=== PATIENT | female | born 1990 | race African-American/Black ===

== ENCOUNTER 2017-06-04 08:55 | Emergency (ER) | payer SELFPAY ==
[2017-06-04] MEDS ORDERED: ONDANSETRON 4 MG TAB.RAPDIS PO ONE (09:23)
--- NOTE | 2017-06-04 09:24 | ER Document Report ---
ED Medical Screen (RME) - General Chief Complaint: Abdominal Pain Stated Complaint: ABDOMINAL PAIN AND VOMITING Time Seen by Provider: 06/04/17 09:23 Notes: Patient with abdominal cramping since yesterday. It is bilateral lower quadrant and more on the right. She states she is a week late on her menstrual cycle. No diarrhea. No problems with urination. She has been nauseous but has not vomited. She denies any medical problems. She has had one abdominal surgery which was a . TRAVEL OUTSIDE OF THE [place] IN LAST 30 DAYS: No - Related Data Allergies/Adverse Reactions: aripiprazole [From [employer]] Allergy (Verified 06/04/17 08:58) Past Medical History - Social History Chew tobacco use (# tins/day): No Frequency of alcohol use: None Drug Abuse: None Renal/ Medical History: Denies: Hx Peritoneal Dialysis Psychiatric Medical History: Reports: Hx Bipolar Disorder Surgical Hx: Negative Physical Exam - Vital signs Vitals: Temp Pulse BP Pulse Ox 98.5 F 82 118/65 96 06/04/17 08:59 06/04/17 08:59 06/04/17 08:59 06/04/17 08:59 Course - Vital Signs Vital signs: Temp Pulse Resp BP Pulse Ox 98.5 F 82 118/65 96 06/04/17 08:59 06/04/17 08:59 06/04/17 08:59 06/04/17 08:59
[2017-06-04 09:57] LABS: ABSOLUTE BASOPHILS # (AUTO) 0.1 10^3/uL (0.0-0.2); ABSOLUTE EOSINOPHILS # (AUTO) 0.1 10^3/uL (0.0-0.6); ABSOLUTE LYMPHOCYTES (AUTO) 2.2 10^3/uL (0.5-4.7); ABSOLUTE MONOCYTES (AUTO) 0.5 10^3/uL (0.1-1.4); ABSOLUTE NEUT (AUTO) 2.9 10^3/uL (1.7-8.2); BASOPHILS % (AUTO) 0.9 % (0-2); EOSINOPHILS % (AUTO) 2.2 % (0-6); HEMOGLOBIN 13.3 g/dL (12.0-15.5); HGB HCT DIFFERENCE -1.1; LYMPHOCYTES % (AUTO) 38.4 % (13-45); MEAN CORPUSCULAR HEMOGLOBIN 26.8 pg (27.0-33.4); MEAN CORPUSCULAR HGB CONC 32.6 g/dL (32.0-36.0); MEAN CORPUSCULAR VOLUME 82 fl (80-97); MONOCYTES % (AUTO) 7.8 % (3-13); RED BLOOD COUNT 4.98 10^6/uL (3.72-5.28); RED CELL DISTRIBUTION WIDTH 14.3 % (11.5-14.0); SEGMENTED NEUTROPHILS % (AUTO) 50.7 % (42-78); WHITE BLOOD COUNT 5.8 10^3/uL (4.0-10.5)
[2017-06-04 10:05] LABS: APPEARANCE,URINE SLIGHTLY-CLOUDY; BILIRUBIN,URINE NEGATIVE (NEGATIVE); GLUCOSE, URINE NEGATIVE (NEGATIVE); KETONES,URINE NEGATIVE (NEGATIVE); LEUKOCYTE ESTERASE,URINE NEGATIVE (NEGATIVE); NITRITE,URINE NEGATIVE (NEGATIVE); PROTEIN,URINE NEGATIVE (NEGATIVE); URINE SPECIFIC GRAVITY 1.029
[2017-06-04 10:15] LABS: ALANINE AMINOTRANSFERASE 47 U/L (9-52); ALKALINE PHOSPHATASE 76 U/L (38-126); ANION GAP 11 (5-19); ASPARTATE AMINO TRANSFERASE 24 U/L (14-36); BILIRUBIN,DIRECT 0.2 mg/dL (0.0-0.4); BILIRUBIN,TOTAL 0.3 mg/dL (0.2-1.3); BLOOD UREA NITROGEN 15 mg/dL (7-20); CALCIUM 9.3 mg/dL (8.4-10.2); CARBON DIOXIDE 24 mmol/L (22-30); CHLORIDE 109 mmol/L (98-107); GLUCOSE 88 mg/dL (75-110); POTASSIUM 4.6 mmol/L (3.6-5.0); SODIUM 144.3 mmol/L (137-145); TOTAL PROTEIN 7.2 g/dL (6.3-8.2)
--- NOTE | 2017-06-04 11:47 | ER Document Report ---
ED General - General Chief Complaint: Abdominal Pain Stated Complaint: ABDOMINAL PAIN AND VOMITING Time Seen by Provider: 06/04/17 09:23 TRAVEL OUTSIDE OF THE [place] IN LAST 30 DAYS: No - HPI Patient complains to provider of: Nausea vomiting abdominal cramping Notes: Patient coming in for abdominal cramping nausea vomiting. Patient states ongoing since last night. Patient states she is due to have her menstrual cycle. Patient denies any fevers chills diarrhea denies any sick contacts denies any recent antibiotic use denies any trauma. - Related Data Allergies/Adverse Reactions: aripiprazole [From [employer]] Allergy (Verified 06/04/17 08:58) Past Medical History - Social History Smoking Status: Current Every Day Smoker Chew tobacco use (# tins/day): No Frequency of alcohol use: None Drug Abuse: None Family History: Reviewed & Not Pertinent Patient has suicidal ideation: No Renal/ Medical History: Denies: Hx Peritoneal Dialysis Psychiatric Medical History: Reports: Hx Bipolar Disorder Surgical Hx: Negative Review of Systems - Review of Systems Constitutional: No symptoms reported EENT: No symptoms reported Cardiovascular: No symptoms reported Respiratory: No symptoms reported Gastrointestinal: Abdominal pain, Nausea, Vomiting Genitourinary: No symptoms reported Female Genitourinary: No symptoms reported Musculoskeletal: No symptoms reported Skin: No symptoms reported Hematologic/Lymphatic: No symptoms reported Neurological/Psychological: No symptoms reported -: Yes All other systems reviewed and negative Physical Exam - Vital signs Vitals: Temp Pulse BP Pulse Ox 98.5 F 82 118/65 96 06/04/17 08:59 06/04/17 08:59 06/04/17 08:59 06/04/17 08:59 Interpretation: Normal - General General appearance: Appears well, Alert - HEENT Head: Normocephalic, Atraumatic Eyes: Normal Pupils: PERRL - Respiratory Respiratory status: No respiratory distress Chest status: Nontender Breath sounds: Normal Chest palpation: Normal - Cardiovascular Rhythm: Regular Heart sounds: Normal auscultation Murmur: No - Abdominal Inspection: Normal Distension: No distension Bowel sounds: Normal Tenderness: Nontender Organomegaly: No organomegaly - Back Back: Normal, Nontender - Extremities General upper extremity: Normal inspection, Nontender, Normal color, Normal ROM , Normal temperature General lower extremity: Normal inspection - Monitoring bracelet on left ankle, Nontender, Normal color, Normal ROM, Normal temperature, Normal weight bearing. No: Blanca's sign - Neurological Neuro grossly intact: Yes Cognition: Normal Orientation: AAOx4 [place] Coma Scale Eye Opening: Spontaneous [place] Coma Scale Verbal: Oriented [place] Coma Scale Motor: Obeys Commands [place] Coma Scale Total: 15 Speech: Normal Motor strength normal: LUE, RUE, LLE, RLE Sensory: Normal - Psychological Associated symptoms: Normal affect, Normal mood - Skin Skin Temperature: Warm Skin Moisture: Dry Skin Color: Normal Course - Re-evaluation Re-evalutation: 06/04/17 15:22 Patient resting comfortably upon my evaluation no signs of any obvious distress. Patient laboratory studies not show any critical pathology. The patient presents with abdominal pain without signs of peritonitis or other life- threatening or serious etiology. The patient appears stable for discharge and has been instructed to return immediately if the symptoms worsen in any way, or in 8-12hr if not improved for re-evaluation. The patient has been instructed to return if the symptoms worsen or change in any way. - Vital Signs Vital signs: Temp Pulse Resp BP Pulse Ox 98.0 F 66 16 110/85 98 06/04/17 12:17 06/04/17 12:17 06/04/17 12:17 06/04/17 12:17 06/04/17 12:17 - Laboratory Result Diagrams: 06/04/17 09:37 06/04/17 09:37 Laboratory results interpreted by me: 06/04/17 06/04/17 06/04/17 09:33 09:37 09:37 MCH 26.8 L RDW 14.3 H Chloride 109 H Urine Urobilinogen 2.0 H Discharge - Discharge Clinical Impression: Abdominal cramping Nausea & vomiting Qualifiers: Vomiting type: unspecified Vomiting Intractability: unspecified Qualified Code( s): R11.2 - Nausea with vomiting, unspecified Condition: Good Disposition: HOME, SELF-CARE Instructions: Abdominal Pain ([facility]), Headache ([facility]), Vomiting ([facility]) Additional Instructions: Take medication as prescribed. Return to the ER if symptoms worsen. SHe may also take Tylenol Motrin for your pain control. Drink plenty of water Prescriptions: Dicyclomine HCl [Bentyl 20 mg Tablet] 20 mg PO QID #30 tablet Ondansetron [Zofran Odt 4 mg Tablet] 1 - 2 tab PO Q4H PRN #20 tab.rapdis PRN Reason: For Nausea/Vomiting Forms: Return to Work
[2017-06-04 12:20] VITALS: BP 110/85
== END 2017-06-04 12:18 | disposition home or self-care (01) ==
LOC: ER 08:55
DX: R10.9 Unspecified abdominal pain (principal); R11.2 Nausea with vomiting, unspecified; F17.200 Nicotine dependence, unspecified, uncomplicated
CPT/HCPCS: 99284; 36415; 85025; 81025; 80053; 81001; S0119

== ENCOUNTER 2018-02-27 14:05 | Emergency (ER) | payer SELFPAY ==
--- NOTE | 2018-02-27 15:21 | ER Document Report ---
ED Skin Rash/Insect Bite/Abscs - General Chief Complaint: Abscess Stated Complaint: POSSIBLE ABCESS Time Seen by Provider: 02/27/18 15:02 Mode of Arrival: Ambulatory Information source: Patient Notes: Patient is a 27-year-old female who presents to the ER today for right "boil" times many years to the right breast. She states at least 5 years this has been present. She states it has never been incised and drained, nor has she ever really popped it. She states that it just becomes inflamed and then " calms back down" only to become inflamed again sometime later. Patient states that this week it became swollen and came to ahead so she popped it. Patient states that yesterday she did get some pus and "a black seed" out of it. Patient is concerned that maybe she did not get all of it and she does not know what the black was. Patient denies any fevers or chills, history of MRSA. Patient denies any abscesses anywhere else. TRAVEL OUTSIDE OF THE [place] IN LAST 30 DAYS: No - Related Data Allergies/Adverse Reactions: aripiprazole [From [employer]] Allergy (Verified 02/27/18 14:08) Past Medical History - General Information source: Patient - Social History Smoking Status: Never Smoker Family History: Reviewed & Not Pertinent Renal/ Medical History: Denies: Hx Peritoneal Dialysis Psychiatric Medical History: Reports: Hx Bipolar Disorder Review of Systems - Review of Systems Constitutional: No symptoms reported EENT: No symptoms reported Cardiovascular: No symptoms reported Respiratory: No symptoms reported Gastrointestinal: No symptoms reported Genitourinary: No symptoms reported Female Genitourinary: No symptoms reported Musculoskeletal: No symptoms reported Skin: See HPI Hematologic/Lymphatic: No symptoms reported Neurological/Psychological: No symptoms reported Physical Exam - Vital signs Vitals: Temp Pulse Resp BP Pulse Ox 98.3 F 87 20 127/83 H 99 02/27/18 14:13 02/27/18 14:13 02/27/18 14:13 02/27/18 14:13 02/27/18 14:13 - Notes Notes: PHYSICAL EXAMINATION: GENERAL: Well-appearing and in no acute distress. HEAD: Atraumatic, normocephalic. EYES: Pupils equal round and reactive to light, extraocular movements intact, sclera anicteric, conjunctiva are normal. NECK: Normal range of motion, supple without lymphadenopathy LUNGS: CTAB and equal. No wheezes rales or rhonchi. HEART: Regular rate and rhythm without murmurs EXTREMITIES: Normal range of motion, no pitting edema. No cyanosis. NEUROLOGICAL: Cranial nerves grossly intact. Normal sensory/motor exams. PSYCH: Normal mood, normal affect. SKIN: Warm, Dry, normal turgor, small superficial area of induration with large hole to the right breast upper outer quadrant, not including the nipple,, no drainage, darkened skin surrounding, no erythema or tenderness to palpation, no fluctuance Course - Re-evaluation Re-evalutation: 02/28/18 07:59 There is nothing to be drained today, space actually just looks like a large blackhead that she removed to the right breast. I did give her dermatology information to follow-up with an I will place her on antibiotics just to cover as she states that this is been ongoing for 5 years and became worse this week with redness and pus. - Vital Signs Vital signs: Temp Pulse Resp BP Pulse Ox 98.7 F 83 16 125/90 H 100 02/27/18 15:35 02/27/18 15:35 02/27/18 15:35 02/27/18 15:35 02/27/18 15:35 Discharge - Discharge Clinical Impression: Abscess of breast Condition: Stable Disposition: HOME, SELF-CARE Additional Instructions: Return immediately for any new or worsening symptoms. Follow up with primary care provider, call tomorrow to make followup appointment. Prescriptions: Sulfamethoxazole/Trimethoprim [Bactrim Ds Tablet] 1 each PO BID #20 tablet Referrals: CARLEE MEJIA DO [ACTIVE STAFF] - Follow up as needed
[2018-02-27 15:37] VITALS: BP 125/90
== END 2018-02-27 15:39 | disposition home or self-care (01) ==
LOC: ER 14:05
DX: N61.1 Abscess of the breast and nipple (principal)
CPT/HCPCS: 99282

== ENCOUNTER 2018-04-21 09:15 | Emergency (ER) | payer SELFPAY ==
[2018-04-21] MEDS ORDERED: NORMAL SALINE 1000 ML 1,000 ML IV ONE (09:37)
[2018-04-21 10:17] LABS: ABSOLUTE BASOPHILS # (AUTO) 0.1 10^3/uL (0.0-0.2); ABSOLUTE EOSINOPHILS # (AUTO) 0.1 10^3/uL (0.0-0.6); ABSOLUTE LYMPHOCYTES (AUTO) 2.7 10^3/uL (0.5-4.7); ABSOLUTE MONOCYTES (AUTO) 0.7 10^3/uL (0.1-1.4); ABSOLUTE NEUT (AUTO) 4.6 10^3/uL (1.7-8.2); EOSINOPHILS % (AUTO) 1.6 % (0-6); HEMATOCRIT 40.4 % (36.0-47.0); HEMOGLOBIN 13.3 g/dL (12.0-15.5); LYMPHOCYTES % (AUTO) 32.7 % (13-45); MEAN CORPUSCULAR HEMOGLOBIN 27.3 pg (27.0-33.4); MEAN CORPUSCULAR VOLUME 83 fl (80-97); PLATELET COUNT 315 10^3/uL (150-450); RED BLOOD COUNT 4.89 10^6/uL (3.72-5.28); RED CELL DISTRIBUTION WIDTH 14.5 % (11.5-14.0); SEGMENTED NEUTROPHILS % (AUTO) 55.7 % (42-78); TOTAL CELLS COUNTED % (AUTO) 100 %; WHITE BLOOD COUNT 8.3 10^3/uL (4.0-10.5)
[2018-04-21 10:36] LABS: ALANINE AMINOTRANSFERASE 16 U/L (9-52); ALKALINE PHOSPHATASE 64 U/L (38-126); ANION GAP 8 (5-19); ASPARTATE AMINO TRANSFERASE 28 U/L (14-36); BILIRUBIN,DIRECT 0.2 mg/dL (0.0-0.4); BILIRUBIN,TOTAL 0.2 mg/dL (0.2-1.3); BLOOD UREA NITROGEN 11 mg/dL (7-20); CALCIUM 8.6 mg/dL (8.4-10.2); CARBON DIOXIDE 28 mmol/L (22-30); CHLORIDE 108 mmol/L (98-107); GLUCOSE 91 mg/dL (75-110); LIPASE 138.4 U/L (23-300); POTASSIUM 4.3 mmol/L (3.6-5.0); TOTAL PROTEIN 7.9 g/dL (6.3-8.2)
[2018-04-21 12:05] LABS: APPEARANCE,URINE CLOUDY; BILIRUBIN,URINE NEGATIVE (NEGATIVE); COLOR,URINE YELLOW; GLUCOSE, URINE NEGATIVE (NEGATIVE); KETONES,URINE NEGATIVE (NEGATIVE); LEUKOCYTE ESTERASE,URINE NEGATIVE (NEGATIVE); NITRITE,URINE NEGATIVE (NEGATIVE); PROTEIN,URINE NEGATIVE (NEGATIVE); URINE SPECIFIC GRAVITY 1.021
--- NOTE | 2018-04-21 12:15 | ER Document Report ---
ED General - General Chief Complaint: Abdominal Pain Stated Complaint: LOWER BACK/ABDOMINAL PAIN Time Seen by Provider: 04/21/18 09:31 TRAVEL OUTSIDE OF THE [place] IN LAST 30 DAYS: No - HPI Patient complains to provider of: Abdominal pain low back pain nausea Notes: Symptoms ongoing for greater than 24 hours. Patient is unaware of her status. Patient states irregular patient has had not had a period in approximately 2 3 months. Patient denies any vaginal bleeding or vaginal discharge. Resting comfortably upon my evaluation no recent antibiotics no recent travel. - Related Data Allergies/Adverse Reactions: aripiprazole [From [employer]] Allergy (Verified 04/21/18 09:23) Past Medical History - Social History Smoking Status: Current Every Day Smoker Family History: Reviewed & Not Pertinent Patient has suicidal ideation: No Patient has homicidal ideation: No Renal/ Medical History: Denies: Hx Peritoneal Dialysis Psychiatric Medical History: Reports: Hx Bipolar Disorder Review of Systems - Review of Systems Constitutional: No symptoms reported EENT: No symptoms reported Cardiovascular: No symptoms reported Respiratory: No symptoms reported Gastrointestinal: Abdominal pain, Nausea, Vomiting Genitourinary: No symptoms reported Female Genitourinary: No symptoms reported Musculoskeletal: No symptoms reported Skin: No symptoms reported Hematologic/Lymphatic: No symptoms reported Neurological/Psychological: No symptoms reported -: Yes All other systems reviewed and negative Physical Exam - Vital signs Vitals: Temp Pulse Resp BP Pulse Ox 98.1 F 94 16 136/75 H 100 04/21/18 09:26 04/21/18 09:26 04/21/18 09:26 04/21/18 09:26 04/21/18 09:26 Interpretation: Normal - General General appearance: Appears well, Alert - HEENT Head: Normocephalic, Atraumatic Eyes: Normal Pupils: PERRL - Respiratory Respiratory status: No respiratory distress Chest status: Nontender Breath sounds: Normal Chest palpation: Normal - Cardiovascular Rhythm: Regular Heart sounds: Normal auscultation Murmur: No - Abdominal Inspection: Normal Distension: No distension Bowel sounds: Normal Tenderness: Nontender Organomegaly: No organomegaly - Back Back: Normal, Nontender - Extremities General upper extremity: Normal inspection, Nontender, Normal color, Normal ROM , Normal temperature General lower extremity: Normal inspection, Nontender, Normal color, Normal ROM , Normal temperature, Normal weight bearing. No: Blanca's sign - Neurological Neuro grossly intact: Yes Cognition: Normal Orientation: AAOx4 [place] Coma Scale Eye Opening: Spontaneous [place] Coma Scale Verbal: Oriented [place] Coma Scale Motor: Obeys Commands [place] Coma Scale Total: 15 Speech: Normal Motor strength normal: LUE, RUE, LLE, RLE Sensory: Normal - Psychological Associated symptoms: Normal affect, Normal mood - Skin Skin Temperature: Warm Skin Moisture: Dry Skin Color: Normal Course - Re-evaluation Re-evalutation: 04/21/18 19:59 Patient pain is distally return positive bedside ultrasound that showed an IUD P. Patient was given information about encouraged follow-up with OB/ [employer]. States understanding of these instructions will be discharged home. - Vital Signs Vital signs: Temp Pulse Resp BP Pulse Ox 97.9 F 77 18 114/64 100 04/21/18 12:24 04/21/18 12:24 04/21/18 12:24 04/21/18 12:24 04/21/18 12:24 - Laboratory Result Diagrams: 04/21/18 10:00 04/21/18 10:00 Laboratory results interpreted by me: 04/21/18 04/21/18 04/21/18 10:00 10:00 11:40 RDW 14.5 H Chloride 108 H Beta HCG, Quant 8319.30 H Urine Urobilinogen 2.0 H Discharge - Discharge Clinical Impression: Abdominal pain during in first trimester Condition: Good Disposition: HOME, SELF-CARE Instructions: Ectopic Precaution ([facility]), [facility] [facility], ( [facility]) Additional Instructions: Your laboratory evaluation today shows that you are . Congratulations. Please follow-up with your SENIOR QC TECHNICIAN or the health department. Return to the ER if her symptoms are worsening. Please take vitamins as prescribed. Tylenol for pain control. sHe may take the Reglan as prescribed for nausea. Prescriptions: Metoclopramide HCl [Reglan] 5 mg PO Q6 #30 tablet Prenat 115/Iron Fum/Folic/Dss [ 19 Tablet] 1 each PO DAILY #30 tablet Forms: Return to Work
[2018-04-21 12:28] VITALS: BP 114/64
== END 2018-04-21 12:28 | disposition home or self-care (01) ==
LOC: ER 09:15
DX: O26.891 Other specified pregnancy related conditions, first trimester (principal); O21.9 Vomiting of pregnancy, unspecified; O99.89 Other specified diseases and conditions complicating pregnancy, childbirth and the puerperium; M54.5 Low back pain; O99.331 Smoking (tobacco) complicating pregnancy, first trimester; Z3A.00 Weeks of gestation of pregnancy not specified
CPT/HCPCS: 99284; 96360; 36415; 84702; 83690; 85025; 80053; 81001; J7030

== ENCOUNTER 2018-07-09 08:35 | Emergency (ER) | payer SELFPAY ==
[2018-07-09] MEDS ORDERED: ACETAMINOPHEN 325 MG TABLET PO ONE (09:21)
--- NOTE | 2018-07-09 09:21 | ER Document Report ---
ED General - General Chief Complaint: Abdominal Cramping Stated Complaint: ABDOMINAL PAIN Time Seen by Provider: 07/09/18 09:00 TRAVEL OUTSIDE OF THE [place] IN LAST 30 DAYS: No - HPI Notes: Patient is a 28-year-old female that presents to the emergency department for chief complaint of cramping. Patient reports suprapubic cramping that started yesterday evening. The cramps are intermittent and sharp in nature. She denies any aggravating or relieving factors. She denies any associated vaginal bleeding, vaginal discharge or back pain. She was told on 04/21/18 that she was . She has not seen CIRCULAR CLERK or had any further care. She denies history of ectopic in the past but states that she was told at her last visit that she may be have an ectopic currently. Patient denies any associated nausea, vomiting, fevers and dysuria. She is taking vitamins. She is not sure if she has ever required RhoGam before. Past Medical History: Negative Past Surgical History: x2 Social History: Daily tobacco. Denies drugs and alcohol Family History: Reviewed and noncontributory for presenting illness Allergies: Reviewed, see documented allergy list. REVIEW OF SYSTEMS: CONSTITUTIONAL : No fever No chills No diaphoresis No recent illness EENT: No vision changes No congestion No sore throat CARDIOVASCULAR: No chest pain No palpitations RESPIRATORY: No shortness of breath No cough No difficulty breathing GASTROINTESTINAL: abdominal pain No nausea No vomiting No diarrhea GENITOURINARY: No dysuria No hematuria No difficulty urinating MUSCULOSKELETAL: No back pain No leg pain No arm pain SKIN: No rashes No lesions LYMPHATIC: No swollen, enlarged glands. NEUROLOGICAL: No lightheadedness No headache No weakness No paresthesias PSYCHIATRIC: No anxiety No depression PHYSICAL EXAMINATION: Vital signs reviewed, nursing noted reviewed. GENERAL: Well-appearing, well-nourished and in no acute distress. HEAD: Atraumatic, normocephalic. EYES: Eyes appear normal, extraocular movements intact, sclera anicteric, conjunctiva are normal. ENT: nares patent, oropharynx clear without exudates. Moist mucous membranes. NECK: Normal range of motion, supple without lymphadenopathy LUNGS: Breath sounds clear to auscultation bilaterally and equal. No wheezes rales or rhonchi. HEART: Regular rate and rhythm without murmurs ABDOMEN: Soft, nontender, normoactive bowel sounds. No rebound, guarding, or rigidity. No masses appreciated. EXTREMITIES: Nontender, good range of motion, no pitting or edema. NEUROLOGICAL: No focal neurological deficits. Moves all extremities spontaneously Motor and sensory grossly intact on exam. PSYCH: Normal mood, normal affect. SKIN: Warm, Dry, normal turgor, no rashes or lesions noted on exposed skin - Related Data Allergies/Adverse Reactions: aripiprazole [From [employer]] Allergy (Verified 07/09/18 08:37) Past Medical History - Social History Smoking Status: Current Every Day Smoker Family History: Reviewed & Not Pertinent Renal/ Medical History: Denies: Hx Peritoneal Dialysis Psychiatric Medical History: Reports: Hx Bipolar Disorder Review of Systems - Review of Systems Notes: Dictated Physical Exam - Vital signs Vitals: Temp Pulse Resp BP Pulse Ox 98.5 F 87 18 120/77 100 07/09/18 08:38 07/09/18 08:38 07/09/18 08:38 07/09/18 08:38 07/09/18 08:38 - Notes Notes: Dictated Course - Re-evaluation Re-evalutation: 07/09/18 09:20 Vitals reviewed. Nursing notes reviewed. Chart reviewed from her previous visit on 04/21/18 showed intrauterine on bedside ultrasound. No formal ultrasound was obtained on that date. 07/09/18 12:41 Lab work is unremarkable. Patient is Rh+. Ultrasound shows single live intrauterine gestation at 16 weeks. She was referred to OB for further management. Laboratory 07/09/18 07/09/18 07/09/18 09:10 09:26 09:26 WBC RBC Hgb Hct MCV MCH MCHC RDW Plt Count Seg Neutrophils % Lymphocytes % Monocytes % Eosinophils % Basophils % Absolute Neutrophils Absolute Lymphocytes Absolute Monocytes Absolute Eosinophils Absolute Basophils Sodium 139.1 Potassium 4.1 Chloride 107 Carbon Dioxide 22 Anion Gap 10 BUN 6 L Creatinine 0.53 Est GFR ( Amer) > 60 Est GFR (Non-Af Amer) > 60 Glucose 93 Calcium 9.3 Beta HCG, Quant 80216.00 H Total Beta HCG POSITIVE Urine Color YELLOW Urine Appearance CLEAR Urine pH 7.0 Ur Specific [place] 1.014 Urine Protein NEGATIVE Urine Glucose (UA) NEGATIVE Urine Ketones NEGATIVE Urine Blood NEGATIVE Urine Nitrite NEGATIVE Urine Bilirubin NEGATIVE Urine Urobilinogen NEGATIVE Ur Leukocyte Esterase TRACE H Urine WBC (Auto) 0 Urine RBC (Auto) 1 Squamous Epi Cells Auto 5 Urine Mucus (Auto) RARE Urine Ascorbic Acid NEGATIVE Urine HCG, Qual POSITIVE H Blood Type A POSITIVE Rhogam Indicated RHOGAM NOT INDICATED 07/09/18 09:26 WBC 10.6 H RBC 4.58 Hgb 12.3 Hct 36.9 MCV 81 MCH 26.9 L MCHC 33.3 RDW 13.9 Plt Count 288 Seg Neutrophils % 62.9 Lymphocytes % 28.1 Monocytes % 7.3 Eosinophils % 1.1 Basophils % 0.6 Absolute Neutrophils 6.7 Absolute Lymphocytes 3.0 Absolute Monocytes 0.8 Absolute Eosinophils 0.1 Absolute Basophils 0.1 Sodium Potassium Chloride Carbon Dioxide Anion Gap BUN Creatinine Est GFR ( Amer) Est GFR (Non-Af Amer) Glucose Calcium Beta HCG, Quant Total Beta HCG Urine Color Urine Appearance Urine pH Ur Specific [place] Urine Protein Urine Glucose (UA) Urine Ketones Urine Blood Urine Nitrite Urine Bilirubin Urine Urobilinogen Ur Leukocyte Esterase Urine WBC (Auto) Urine RBC (Auto) Squamous Epi Cells Auto Urine Mucus (Auto) Urine Ascorbic Acid Urine HCG, Qual Blood Type Rhogam Indicated Obstetrics Ultrasound 07/09/18 09:20 IMPRESSION: LIVING INTRAUTERINE . ESTIMATED GESTATIONAL AGE 16 weeks 5 days Limited anatomic survey Trimester of : Second trimester - 13 weeks 1 day to 27 weeks 6 days. - Vital Signs Vital signs: Temp Pulse Resp BP Pulse Ox 98.5 F 87 18 120/77 100 07/09/18 08:38 07/09/18 08:38 07/09/18 08:38 07/09/18 08:38 07/09/18 08:38 - Laboratory Result Diagrams: 07/09/18 09:26 07/09/18 09:26 Laboratory results interpreted by me: 07/09/18 07/09/18 07/09/18 09:10 09:26 09:26 WBC 10.6 H MCH 26.9 L BUN 6 L Beta HCG, Quant 98856.00 H Ur Leukocyte Esterase TRACE H Urine HCG, Qual POSITIVE H Discharge - Discharge Clinical Impression: Abdominal pain affecting Condition: Stable Disposition: HOME, SELF-CARE Instructions: Pelvic Pain in ([facility]) Additional Instructions: Please return to the emergency department if you have any worsening, or concern of your symptoms. Please return to the emergency department if you develop chest pain, difficulty breathing, severe abdominal pain, or ongoing vomiting. Please follow-up with your primary care physician in 2-3 days and any other recommended physicians. If prescribed, take all medications as directed. If you have any questions or concerns do not hesitate to return the emergency department for evaluation. [] Referrals: [facility] [Provider Group] - Follow up in 3-5 days
[2018-07-09 09:43] LABS: ABSOLUTE BASOPHILS # (AUTO) 0.1 10^3/uL (0.0-0.2); ABSOLUTE EOSINOPHILS # (AUTO) 0.1 10^3/uL (0.0-0.6); ABSOLUTE MONOCYTES (AUTO) 0.8 10^3/uL (0.1-1.4); ABSOLUTE NEUT (AUTO) 6.7 10^3/uL (1.7-8.2); BASOPHILS % (AUTO) 0.6 % (0-2); EOSINOPHILS % (AUTO) 1.1 % (0-6); HEMATOCRIT 36.9 % (36.0-47.0); HEMOGLOBIN 12.3 g/dL (12.0-15.5); LYMPHOCYTES % (AUTO) 28.1 % (13-45); MEAN CORPUSCULAR HEMOGLOBIN 26.9 pg (27.0-33.4); MEAN CORPUSCULAR HGB CONC 33.3 g/dL (32.0-36.0); MEAN CORPUSCULAR VOLUME 81 fl (80-97); MONOCYTES % (AUTO) 7.3 % (3-13); PLATELET COUNT 288 10^3/uL (150-450); RED BLOOD COUNT 4.58 10^6/uL (3.72-5.28); RED CELL DISTRIBUTION WIDTH 13.9 % (11.5-14.0); SEGMENTED NEUTROPHILS % (AUTO) 62.9 % (42-78); TOTAL CELLS COUNTED % (AUTO) 100 %; WHITE BLOOD COUNT 10.6 10^3/uL (4.0-10.5)
[2018-07-09 09:54] LABS: APPEARANCE,URINE CLEAR; BILIRUBIN,URINE NEGATIVE (NEGATIVE); COLOR,URINE YELLOW; GLUCOSE, URINE NEGATIVE (NEGATIVE); KETONES,URINE NEGATIVE (NEGATIVE); LEUKOCYTE ESTERASE,URINE TRACE (NEGATIVE); NITRITE,URINE NEGATIVE (NEGATIVE); PROTEIN,URINE NEGATIVE (NEGATIVE); URINE SPECIFIC GRAVITY 1.014; UROBILINOGEN,URINE NEGATIVE mg/dL (<2.0)
[2018-07-09 10:01] LABS: ANION GAP 10 (5-19); BLOOD UREA NITROGEN 6 mg/dL (7-20); CALCIUM 9.3 mg/dL (8.4-10.2); CARBON DIOXIDE 22 mmol/L (22-30); CHLORIDE 107 mmol/L (98-107); GLUCOSE 93 mg/dL (75-110); POTASSIUM 4.1 mmol/L (3.6-5.0); SODIUM 139.1 mmol/L (137-145)
--- NOTE | 2018-07-09 12:06 | RADIOLOGY REPORT (SQ) ---
EXAM DESCRIPTION: U/S OB 14+ TRNABD 1GES W/O DOP COMPLETED DATE/TIME: 07/09/2018 11:40 am REASON FOR STUDY: Abdominal pain COMPARISON: None. TECHNIQUE: Static and Dynamic grayscale imaging performed of gravid uterus using transabdominal appr oac. Additional selected color Doppler and spectral images recorded. All stored on PACS. LIMITATIONS: None. FINDINGS: FETUSES SEEN:1 EGA: 16 weeks 5 days Calculated using BPD,FL,HC,AC documented on images. No clinical dates for saroj barnes LUZ: 12/19/2018 EFW: 179 g PERCENTILE: Not applicable. Fetus less than or equal to 20 weeks gestation. DEBRA: Adequate PLACENTA: Developing anteriorly GRADE: I PRESENTATION: Variable ANATOMY: HEART RATE: 135 beats per minute. FOUR CHAMBER HEART: Not well seen THREE VESSEL CORD: Not well seen CORD INSERTION: Visualized. KIDNEYS AND BLADDER: Visualized. Appear normal. STOMACH: Not well seen SPINE: Normal as visualized. BRAIN AND LATERAL VENTRICLES: Limited visualization, no gross anomalies OTHER: No other significant finding. MATERNAL ADNEXA: Maternal ovaries not visualized. CERVICAL LENGTH: 3.9 cm Closed. OTHER: No other significant finding. IMPRESSION: LIVING INTRAUTERINE . ESTIMATED GESTATIONAL AGE 16 weeks 5 days Limited anatomic survey Trimester of : Second trimester - 13 weeks 1 day to 27 weeks 6 days. TECHNICAL DOCUMENTATION: JOB ID: [id number] [employer]- All Rights Reserved Reading location - IP/workstation name: [email or web address]
[2018-07-09 13:10] VITALS: BP 117/59
== END 2018-07-09 13:11 | disposition home or self-care (01) ==
LOC: ER 08:35
DX: O26.892 Other specified pregnancy related conditions, second trimester (principal); R10.9 Unspecified abdominal pain; O99.332 Smoking (tobacco) complicating pregnancy, second trimester; Z3A.16 16 weeks gestation of pregnancy
CPT/HCPCS: 36415; 76805; 80048; 81001; 81025; 84702; 85025; 86900; 86901; 99284

== ENCOUNTER 2018-08-26 13:19 | Emergency (ER) | payer MEDICAID ==
[2018-08-26 13:34] VITALS: BP 117/69
--- NOTE | 2018-08-26 14:03 | ER Document Report ---
ED General - General Chief Complaint: Congestion Stated Complaint: CHEST CONGESTION,HEADACHE, COUGH Time Seen by Provider: 08/26/18 13:53 Notes: 28-year-old female approximately 22 weeks gestation here with complaints of cough congestion runny nose ongoing for the past 7 days. She reports that the symptoms have been persistent and have not improved. Her cough is productive of green sputum. She has not tried anything for the symptoms other than honey and tea. She has not yet seen her TERMINAL SUPERVISOR but has an appointment on the . Immunizations up-to-date except influenza vaccine because "I do not believe in the flu vaccine". TRAVEL OUTSIDE OF THE [place] IN LAST 30 DAYS: No - Related Data Allergies/Adverse Reactions: aripiprazole [From Verified Identity Pass] Allergy (Verified 08/26/18 13:22) Past Medical History - Social History Smoking Status: Never Smoker Chew tobacco use (# tins/day): No Frequency of alcohol use: None Drug Abuse: None Family History: Reviewed & Not Pertinent Patient has suicidal ideation: No Patient has homicidal ideation: No Renal/ Medical History: Denies: Hx Peritoneal Dialysis Psychiatric Medical History: Reports: Hx Bipolar Disorder Past Surgical History: Reports: Hx Section - x2, Hx Orthopedic Surgery - ACL repair, knee Review of Systems - Review of Systems Notes: See history of present illness for pertinent positive review of systems; otherwise all review of systems have been reviewed and are negative Physical Exam - Vital signs Vitals: Temp Pulse Resp BP Pulse Ox 98.3 F 93 18 117/69 99 08/26/18 13:33 08/26/18 13:33 08/26/18 13:33 08/26/18 13:33 08/26/18 13:33 - Notes Notes: PHYSICAL EXAMINATION: GENERAL: Well-appearing and in no acute distress. HEAD: Atraumatic, normocephalic. EYES: Pupils equal round and reactive to light, extraocular movements intact, sclera anicteric, conjunctiva are normal. ENT: nares patent but with slight clear nasal discharge, oropharynx minimal erythema without tonsillar swelling or exudates. Moist mucous membranes. NECK: Normal range of motion, supple without lymphadenopathy LUNGS: CTAB and equal. No wheezes rales or rhonchi. HEART: Regular rate and rhythm without murmurs ABDOMEN: Soft, no tenderness. No facial grimacing/wincing upon palpation. No guarding, no rebound. EXTREMITIES: Normal range of motion, no pitting edema. No cyanosis. NEUROLOGICAL: Cranial nerves grossly intact. Normal sensory/motor exams. PSYCH: Normal mood, normal affect. SKIN: Warm, Dry, normal turgor, no rashes or lesions noted Course - Re-evaluation Re-evalutation: 08/26/18 14:03 MEDICAL DECISION MAKING: Concern for upper respiratory infection, most likely viral Since she is and since symptoms ongoing 7 days, will prescribe Augmentin Instructed patient on fever control with Tylenol Also discussed keeping hydrated with water or Gatorade/Pedialyte Instructed follow-up TERMINAL SUPERVISOR next day or few Patient understands and agrees to the plan of care - Vital Signs Vital signs: Temp Pulse Resp BP Pulse Ox 98.3 F 93 18 117/69 99 08/26/18 13:33 08/26/18 13:33 08/26/18 13:33 08/26/18 13:33 08/26/18 13:33 Discharge - Discharge Clinical Impression: Acute URI Condition: Good Disposition: HOME, SELF-CARE Additional Instructions: You were seen in the emergency department at [facility]. You likely have an upper respiratory infection, most likely viral, however finished the prescribed antibiotics to prevent any bacterial infection from forming due to your immunocompromised state during . Use Tylenol for fever control. You may use saline nasal spray for stuffy nose. Try extra strength menthol cough drops for your cough. Stay hydrated. Please followup with your primary TERMINAL SUPERVISOR physician in the next few days for further management/evaluation. Please return to the emergency department for worsening of symptoms or any symptom that you deem to be concerning or life-threatening. Thank you for allowing us to be part of your care. This is your school/work note for your Emergency Department evaluation today. Prescriptions: Amox Tr/Potassium Clavulanate [Augmentin 875-125 Tablet] 1 tab PO BID 7 Days tablet
== END 2018-08-26 14:37 | disposition home or self-care (01) ==
LOC: ER 13:19
DX: O26.92 Pregnancy related conditions, unspecified, second trimester (principal); J06.9 Acute upper respiratory infection, unspecified; R68.89 Other general symptoms and signs; R51 Headache; Z3A.22 22 weeks gestation of pregnancy
CPT/HCPCS: 99283

== ENCOUNTER 2018-11-07 11:44 | Outpatient (CLI) | payer MEDICAID ==
--- NOTE | 2018-11-07 12:51 | Non Stress Test Report ---
Non Stress Test Datetime Report Generated by CPN: 11/07/2018 12:51 DEMOGRAPHIC EGA NST: 34.0 INDICATION Indication for Study: Diabetes Mellitus MONITORING Monitor Explained: Monitor Explained; Test Explained; Patient Verbalized Understanding Time on Monitor: 11/07/2018 11:56 Time off Monitor: 11/07/2018 12:35 NST Duration: 39 NST INTERVENTIONS NST Interventions: PO Hydration Physician Notified NST: A. Bowman, CNM BABY A: [id number] BABY A Movement : Present Contraction Frequency : 0 FHR Baseline : 125 Accelerations : 15X15 Decelerations : None Variability : Moderate 6-25bpm NST Review: Meets Criteria for Reactive NST NST Review and Verified By : Peyton Huston RN NST REPORT Report Trigger: Send Report
== END 2018-11-07 12:55 | disposition home or self-care (01) ==
LOC: LC 11:44
PROVIDERS: ATTEND Obstetrics & Gynecology Gynecology
PROC: 4A1HXCZ Monitoring of Products of Conception, Cardiac Rate, External Approach (ICD-10-PCS; principal; 2018-11-07)
DX: O24.419 Gestational diabetes mellitus in pregnancy, unspecified control (principal); Z3A.34 34 weeks gestation of pregnancy
CPT/HCPCS: 59025

== ENCOUNTER 2019-03-21 05:33 | Day surgery (SDC) | payer MEDICAID ==
[2019-03-19 09:58] LABS: APPEARANCE,URINE CLEAR; BILIRUBIN,URINE NEGATIVE (NEGATIVE); COLOR,URINE YELLOW; GLUCOSE, URINE NEGATIVE (NEGATIVE); KETONES,URINE NEGATIVE (NEGATIVE); LEUKOCYTE ESTERASE,URINE NEGATIVE (NEGATIVE); NITRITE,URINE NEGATIVE (NEGATIVE); PROTEIN,URINE NEGATIVE (NEGATIVE); URINE SPECIFIC GRAVITY 1.027; UROBILINOGEN,URINE NEGATIVE mg/dL (<2.0)
[2019-03-19 10:15] LABS: HEMOGLOBIN 11.7 g/dL (12.0-15.5); MEAN CORPUSCULAR HEMOGLOBIN 24.2 pg (27.0-33.4); MEAN CORPUSCULAR HGB CONC 32.5 g/dL (32.0-36.0); MEAN CORPUSCULAR VOLUME 75 fl (80-97); PLATELET COUNT 266 10^3/uL (150-450); RED BLOOD COUNT 4.83 10^6/uL (3.72-5.28); RED CELL DISTRIBUTION WIDTH 18.1 % (11.5-14.0); WHITE BLOOD COUNT 5.5 10^3/uL (4.0-10.5)
[2019-03-21] MEDS ORDERED: BUPIVACAINE HCL 0.25 % INJ/PF (2.5 MG/1 ML) 30 ML VIAL ONE (06:58)
[2019-03-21] MEDS ORDERED: DEXAMETHASONE SOD PHOSPHATE INJ 4 MG/1 ML VIAL ONE (07:10)
[2019-03-21] MEDS ORDERED: SUGAMMADEX SODIUM 200 MG/2 ML SDV IV ONE (07:10)
[2019-03-21] MEDS ORDERED: PROPOFOL INJ 200 MG/20 ML VIAL IV ONE (07:10)
[2019-03-21] MEDS ORDERED: FENTANYL CITRATE INJ/PF 250 MCG/5 ML AMPULE ONE (07:10)
[2019-03-21] MEDS ORDERED: MIDAZOLAM 2 MG/2 ML INJ ONE (07:10)
[2019-03-21] MEDS ORDERED: ONDANSETRON HCL INJ/PF 4 MG/2 ML SDV ONE (07:10)
[2019-03-21] MEDS ORDERED: LIDOCAINE 2% INJ-PF (100 MG/5 ML) SYRINGE ONE (07:10)
[2019-03-21] MEDS ORDERED: FENTANYL CITRATE INJ/PF 100 MCG/2 ML AMPUL IV PRN ×3 (07:57)
[2019-03-21] MEDS ORDERED: MEPERIDINE HCL/PF INJ 25 MG/1 ML DISP.SYRIN IV PRN (07:57)
[2019-03-21] MEDS ORDERED: PROMETHAZINE HCL INJ 25 MG/1 ML VIAL IV PRN ×2 (07:57)
[2019-03-21] MEDS ORDERED: DIPHENHYDRAMINE HCL 50 MG/ML VIAL IV PRN (07:57)
[2019-03-21] MEDS ORDERED: BUPIVACAINE HCL 0.25 % INJ/PF (2.5 MG/1 ML) 30 ML VIAL INJ ONE ×2 (08:01)
[2019-03-21] MEDS ORDERED: ESMOLOL HCL INJ/PF 100 MG/10 ML SDV IV ONE (08:14)
--- NOTE | 2019-03-21 08:54 | Operative Report ---
Operative Report DATE OF SURGERY: 03/21/19 PREOPERATIVE DIAGNOSIS: 1. Multiparity. 2. Completed family status. 3. Pedro Luis ires permanent sterilization POSTOPERATIVE DIAGNOSIS: Same plus omental adhesions OPERATION: Laparoscopic bilateral partial salpingectomy with Endoloops; lysis of omental adhesions SURGEON: LAWRENCE BRADFORD ANESTHESIA: GA TISSUE REMOVED OR ALTERED: Right and left partial fallopian tubes; omental adhesions lysed COMPLICATIONS: None INTRAOPERATIVE FINDINGS: Normal uterus adhesed to the peritoneum; normal bilateral tubes and ovaries; left-sided omentum adhesed to the abdominal wall; grossly normal appearing liver PROCEDURE: The patient was taken to the operating room where general anesthesia was obtained without difficulty. She was then placed in dorsal supine lithotomy position and prepped and draped in the normal sterile fashion. Rudolph speculum was then placed in the patient's vagina and the anterior lip of the cervix grasped with a single-tooth tenaculum. An acorn uterine manipulator was then advanced into the uterus to provide a means of manipulation of the uterus. The speculum was then removed from the patient's cervix and vagina. Attention was then turned to the patient's abdomen where a 5 mm skin incision was then made in the umbilicus. The Optiview trocar with 0 laparoscope was then advanced without difficulty under direct visualization with the Optiview trocar. This was performed while tenting the abdominal wall. Intraperitoneal placement was confirmed by the direct visualization. Pneumoperitoneum was then obtained with approximately 4 L carbon dioxide gas. Survey of the patient's abdomen and pelvis revealed findings as noted above. Two 5 mm lateral ports were placed under direct visualization. The right fallopian tube was then identified and followed out to the fimbriated end. A PDS Endoloop was placed at the fimbriated end, abutting the ovary. The tube was the transected and the Endoloop cut. Hemostasis was noted. The right partial tube was removed through the trocar and handed off to the OR Tech. Attention was then turned to the left fallopian tube which was transected in the same manner. The tube was also handed to the OR Tech also. I then used laparoscopic scissors with cautery to take down the left-sided omental adhesions. Hemostasis was noted. All operative sites were visualized and noted to be hemostatic. The CO2 gas wsa then turned off and allowed to escape from the patient's abdomen. All trocars were then removed. The skin at all trocar sites were closed with 4-0 Vicryl in a subcuticular fashion with overlying Dermabond. No antibiotics were indicated for this procedure. After completion of skin cl osure of the trocar sites attention was then turned to the vagina where the acorn uterine manipulator was removed and the bivalve speculum was replaced. Monsel's solution was applied to the tenaculum sites for hemostasis and the speculum was removed. Sponge, lap, needle and instrument counts were correct 2. The patient tolerated the procedure well and was taken to the recovery area awake and in stable condition.
[2019-03-21] MEDS ORDERED: OXYCODONE-ACETAMINOPHEN 5-325 MG TABLET ONE (09:05)
[2019-03-21 10:21] VITALS: BP 108/81
[2019-03-21] MEDS ORDERED: SUCCINYLCHOLINE CHLORIDE INJ 200 MG/10 ML VIAL ONE (14:13)
[2019-03-21] MEDS ORDERED: ROCURONIUM BROMIDE INJ 50 MG/5 ML VIAL IV ONE (14:13)
== END 2019-03-21 10:23 | disposition home or self-care (01) ==
LOC: OROUT 05:33
PROVIDERS: ATTEND Obstetrics & Gynecology
DX: Z30.2 Encounter for sterilization (principal); E66.9 Obesity, unspecified; Z68.41 Body mass index [BMI] 40.0-44.9, adult; K66.0 Peritoneal adhesions (postprocedural) (postinfection); F17.210 Nicotine dependence, cigarettes, uncomplicated
CPT/HCPCS: 86900; 86901; 36415; 86850; 85027; 81005; 81025; 88302 ×2; 00851; 58671; J2250; J3490 ×3; J1100; J3010; J2001; J0330; J2405; S0020; J2704; 851